=== PATIENT | male | born 1955 | race Caucasian/White ===

== ENCOUNTER 2016-06-25 06:05 | Day surgery (SDC) | payer BC ==
[2016-06-20 15:15] LABS: HEMATOCRIT 37.8 % (40.0-51.0); HEMOGLOBIN 12.7 g/dL (13.6-17.8)
[2016-06-20 15:36] LABS: CALCIUM, SERUM 9.1 MG/DL (8.5-10.4); CHLORIDE, SERUM 107 MMOL/L (96-112); CO2 (CARBON DIOXIDE) 27 MMOL/L (24-34)
[2016-06-20 15:37] LABS: BUN (BLOOD UREA NITROGEN) 38 MG/DL (6-23); CREATININE 1.88 MG/DL (0.70-1.30); GFR AFRICAN AMERICAN 43 ML/MIN (>=60); GFR NON AFRICAN AMERICAN 37 ML/MIN (>=60); GLUCOSE, SERUM 82 MG/DL (60-99); POTASSIUM, SERUM 4.7 MMOL/L (3.5-5.3); SODIUM, SERUM 141 MMOL/L (135-148)
[~2016-06-25 06:05] MED LIST: ALBUTEROL0.63 MG/3 INH; ALTA2.5 PO; AMLACTIN121 TOP; ASAB PO; ASABAYER PO; AT25 PO; ATROVENT HFA17 MCG INH; ATV.5 PO; AVINZA30 PO; BACDS PO; BACTROINT TOP; BUM2 PO; COREG25 PO; CRESTOR10 PO; DEMA100 PO; DEXILAN; DEXILANT; DEXILANT PO; DIOVAN HC1 PO; DURA100 TOP; DURA75; DURA75 TOP; DURICEF PO; EFFEX75 PO; EFFEXOR XR150 MG PO; EFFEXXR75 PO; EXALGO; EXALGO PO; EXELON4.6T PO; GLUCPH PO; HALF81 PO; HUMALOG SC; HUMALOGMIX SC; HYDROMORPHONE; ILEVRO1.7 ML OPH; IPRA17AE INH; IPRA17AE PO; IRON PO; IRON325 MG PO; K500 PO; KAPIDEX60 MG PO; KDUR20 PO; KLONO1 PO; KLONO2 PO; KLONOPIN WAF1 MG PO; KLOR-CON M2020 MEQ PO; L40 PO; LEVEMIR SC; LIPITOR40 PO; LOTENSIN HCT1 TA2 PO; LYRICA100 MG PO; LYRICA50 PO; LYRICA75 PO; MAGOX4 PO; METHATAB5B PO; METHOC750B PO; MIRALAXPKT PO; MIRAPEX125 PO; MIRAPEX250 PO; MSIMMR15 PO; NAVANE2 MG OR; NAVANE2 MG PO; NEO-OINT TOP; NEO-OINT15 TOP; NEXIUM40 PO; NORCO1 TA1 PO; NORCO1 TAB PO; NORV5 PO; NOVLOGPUMP SC; OPANA ER15 MG PO; OXYCOD PO; PCET PO; PEPCID40 MG OR; PERCOCET1 TA4 PO; PR12.5 PO; PR25 PO; PREDFORTE OPH; PRIN10 PO; PRIN2.5 PO; PROAMAT5 PO; PROTONIX PO; PROVHFA INH; RANITIDINE300 MG PO; REG5 PO; REM15 PO; REQUIP1 PO; REQUIP4 MG PO; REQUIP5 MG PO; ROXICODONE15 MG PO; ROXICODONE30 MG PO; SPIRO25 PO; TORSEMIDE PO; VIB100 PO; VIGAMOX OPH; X25 PO; X5 PO; XANAX1 MG PO; ZOCOR20 PO; ZOCOR40 PO; [UNRECOGNIZED DRUG - OTHER]; [UNRECOGNIZED DRUG - OTHER]
[2016-07-26] MEDS ORDERED: WELLXL150 PO (13:59)
== END 2016-06-25 16:13 | disposition home or self-care (01) ==
LOC: SDC 06:05
PROVIDERS: Ophthalmology
PROC: 08RK3JZ Replacement of Left Lens with Synthetic Substitute, Percutaneous Approach (ICD-10-PCS; principal; 2016-06-25 07:15)
DX: H25.12 Age-related nuclear cataract, left eye (principal); J44.9 Chronic obstructive pulmonary disease, unspecified; E78.5 Hyperlipidemia, unspecified; E11.9 Type 2 diabetes mellitus without complications; G25.81 Restless legs syndrome; I25.2 Old myocardial infarction; I11.0 Hypertensive heart disease with heart failure; I50.9 Heart failure, unspecified; G47.33 Obstructive sleep apnea (adult) (pediatric); Z88.0 Allergy status to penicillin; Z88.8 Allergy status to other drugs, medicaments and biological substances; Z79.899 Other long term (current) drug therapy
CPT/HCPCS: 80048; 82962; 85014; 85018; 93005; A9270-GY; J2250; J2405; J3010